=== PATIENT | female | born 1955 | race Caucasian/White ===

== ENCOUNTER 2017-07-01 14:52 | Inpatient (IN) | payer OTHER, MEDICARE ==
[~2017-07-01] VITALS: Ht 157.5 cm; Wt 60.0 kg
[~2017-07-01 14:52] MED LIST: AMOX875T20 PO; CIPR500T4 PO; ESTR1TAB PO; LEVO.1 PO; TRAM50TA PO; XANA1TAB6 PO
[2017-07-01 15:10] VITALS: BP 156/76; PULSE 84; RESP 18; TEMP 97.3; O2SAT 99
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
[2017-07-01] MEDS ORDERED: ONDANSETRON HCL 4 MG/2 ML VIAL ONE (15:42)
[2017-07-01] MEDS ORDERED: MORPHINE SULFATE 4 MG/ML INJ IV PUSH ONE (15:45)
[2017-07-01] MEDS ORDERED: ATEN25TA PO (16:31)
[2017-07-01] MEDS ORDERED: CHOL5000 PO (16:31)
[2017-07-01] MEDS ORDERED: CYCL10TA PO (16:31)
[2017-07-01] MEDS ORDERED: LEVO.075 PO (16:31)
[2017-07-01] MEDS ORDERED: BIOTCAP PO (16:31)
[2017-07-01] MEDS ORDERED: ALPR1TAB3 PO (16:31)
[2017-07-01] MEDS ORDERED: ESTR1TAB PO (16:31)
[2017-07-01] MEDS ORDERED: TRAM50TA PO (16:31)
[2017-07-01] MEDS ORDERED: IOHEXOL 350 MG/ML 10 ML VIAL (for RAD DIAG) IVCONTRAST ONE (16:38)
[2017-07-01] MEDS ORDERED: ONDANSETRON HCL 4 MG/2 ML VIAL IV PUSH ONE (17:00)
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
[2017-07-01 17:52] VITALS: BP 152/80; PULSE 79; RESP 18; O2SAT 97
[2017-07-01] MEDS ORDERED: ENALAPRILAT 1.25 MG/ML VIAL IV PUSH PRN (18:15)
[2017-07-01] MEDS ORDERED: SODIUM CHLORIDE 0.9% FLUSH 10 ML FLUSH IV FLUSH PRN (18:15)
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
[2017-07-01 19:03] VITALS: BP 165/86; PULSE 76; RESP 18; O2SAT 97
[2017-07-01] MEDS: MORPHINE SULFATE 2 MG/ML SYRINGE IV PRN (19:03)
[2017-07-01 20:00] VITALS: BP 162/82; PULSE 81; RESP 16; TEMP 98.1; O2SAT 93
[2017-07-01] MEDS: DOCUSATE SODIUM 100 MG CAP PO SCH (20:58)
[2017-07-01] MEDS: PANTOPRAZOLE SODIUM 40 MG VIAL IVP SCH (20:58)
[2017-07-01] MEDS: SODIUM CHLOR 0.9% 1000 ML INJ 1,000 ML IV SCH (21:03)
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
[2017-07-02] VITALS: BP 153/72; PULSE 85; RESP 18; TEMP 97.9; O2SAT 95
[2017-07-02 03:18] VITALS: BP 124/68; PULSE 83; RESP 18; TEMP 98.1; O2SAT 95
[2017-07-02] MEDS: MORPHINE SULFATE 2 MG/ML SYRINGE IV PRN ×3 (03:29→18:03)
[2017-07-02] MEDS: SODIUM CHLOR 0.9% 1000 ML INJ 1,000 ML IV SCH ×2 (03:58→16:24)
[2017-07-02] MEDS: LEVOTHYROXINE SODIUM 75 MCG TAB PO SCH (05:10)
[2017-07-02] MEDS: BACITRACIN TOP OINT 15 GM TUBE TOPICAL PRN ×3 (05:15→23:11)
[2017-07-02] MEDS ORDERED: ACETAMINOPHEN/HYDROcodone 325 MG/7.5 MG TAB PO PRN (07:15)
[2017-07-02] MEDS ORDERED: ACETAMINOPHEN/HYDROcodone 325 MG/5 MG TAB PO PRN (07:15)
[2017-07-02 07:23] LABS: AUTOMATED NEUTROPHIL # 4.2 TH/MM3 (1.8-7.7); BASOPHIL % 0.7 % (0.0-2.0); EOSINOPHIL % 0.7 % (0.0-4.0); HEMATOCRIT 35.6 % (35.0-46.0); LYMPH % 29.7 % (9.0-44.0); LYMPHOCYTE # 2.1 TH/MM3 (1.0-4.8); MEAN CELL VOLUME 86.3 FL (80.0-100.0); MEAN CORPUSCULAR HEMOGLOBIN 29.1 PG (27.0-34.0); MEAN CORPUSCULAR HGB CONC 33.8 % (32.0-36.0); MEAN PLATELET VOLUME 7.8 FL (7.0-11.0); MONO % 8.8 % (0.0-8.0); MONOCYTE # 0.6 TH/MM3 (0-0.9); NEUT % 60.1 % (16.0-70.0); PLATELET COUNT 232 TH/MM3 (150-450); RED BLOOD COUNT 4.13 MIL/MM3 (4.00-5.30); RED CELL DISTRIBUTION WIDTH 14.2 % (11.6-17.2)
[2017-07-02 07:46] VITALS: BP 124/68; PULSE 83; RESP 18; TEMP 98; O2SAT 95
[2017-07-02 07:49] LABS: ALBUMIN 3.2 GM/DL (3.4-5.0); ALT (GPT) 26 U/L (10-53); AST (GOT) 31 U/L (15-37); BICARBONATE 28.1 MEQ/L (21.0-32.0); BLOOD UREA NITROGEN 10 MG/DL (7-18); CALCIUM 8.6 MG/DL (8.5-10.1); CHLORIDE 105 MEQ/L (98-107); CREATININE 0.67 MG/DL (0.50-1.00); GLOMERULAR FILTRATION RATE 89 ML/MIN (>89); GLUCOSE,RANDOM 98 MG/DL (74-106); SODIUM (NA) 141 MEQ/L (136-145)
[2017-07-02] MEDS ORDERED: MAGN30S PO (07:50)
[2017-07-02] MEDS ORDERED: DOCU1CAP39 PO (07:50)
[2017-07-02 07:51] LABS: ALKALINE PHOSPHATASE 114 U/L (45-117); TOTAL BILIRUBIN ADULT 0.5 MG/DL (0.2-1.0); TOTAL PROTEIN 6.5 GM/DL (6.4-8.2)
[2017-07-02] MEDS: DOCUSATE SODIUM 100 MG CAP PO SCH ×2 (08:28→19:35)
[2017-07-02] MEDS: ATENOLOL 25 MG TAB PO SCH (08:29)
[2017-07-02] MEDS: MAGNESIUM HYDROXIDE SUSP 30 ML CUP PO PRN (08:30)
[2017-07-02] MEDS: CYCLOBENZAPRINE HCL 10 MG TAB PO SCH ×3 (08:30→16:24)
[2017-07-02] MEDS: ONDANSETRON HCL 4 MG/2 ML VIAL IV PUSH PRN ×3 (08:34→18:04)
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
[2017-07-02] MEDS: ALPRAZolam 1 MG TAB PO PRN ×2 (12:48→22:21)
[2017-07-02] MEDS: traMADol HCL 50 MG TAB PO PRN ×2 (12:48→22:17)
[2017-07-02 13:04] VITALS: BP 169/69; PULSE 68; RESP 17; TEMP 98.2; O2SAT 97
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
[2017-07-02] MEDS: PANTOPRAZOLE SODIUM 40 MG VIAL IVP SCH (19:36)
[2017-07-02 20:00] VITALS: BP 135/73; PULSE 83; RESP 18; TEMP 97.9; O2SAT 97
[2017-07-03] VITALS: BP 152/72; PULSE 78; RESP 18; TEMP 98.2; O2SAT 96
[2017-07-03] MEDS: SODIUM CHLOR 0.9% 1000 ML INJ 1,000 ML IV SCH ×3 (01:00→21:00)
[2017-07-03 04:00] VITALS: BP 134/60; PULSE 79; RESP 18; TEMP 97.9; O2SAT 95
[2017-07-03] MEDS: LEVOTHYROXINE SODIUM 75 MCG TAB PO SCH (06:41)
[2017-07-03 08:00] VITALS: BP 170/86; PULSE 86; RESP 18; TEMP 97.3; O2SAT 96
[2017-07-03] MEDS: traMADol HCL 50 MG TAB PO PRN ×2 (08:34→16:33)
[2017-07-03] MEDS: CYCLOBENZAPRINE HCL 10 MG TAB PO SCH ×3 (08:34→16:33)
[2017-07-03] MEDS: ESTRADIOL 1 MG TAB PO SCH (08:34)
[2017-07-03] MEDS: ALPRAZolam 1 MG TAB PO PRN ×2 (08:34→16:33)
[2017-07-03] MEDS: MAGNESIUM HYDROXIDE SUSP 30 ML CUP PO PRN (08:35)
[2017-07-03] MEDS: DOCUSATE SODIUM 100 MG CAP PO SCH ×2 (08:35→22:19)
[2017-07-03] MEDS: ATENOLOL 25 MG TAB PO SCH (08:36)
[2017-07-03] MEDS: BACITRACIN TOP OINT 15 GM TUBE TOPICAL PRN (08:44)
[2017-07-03] MEDS: MAGNESIUM HYDROXIDE SUSP 30 ML CUP PO SCH ×3 (08:51→22:19)
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
[2017-07-03 11:34] VITALS: BP 152/79; PULSE 80; RESP 17; TEMP 97.6; O2SAT 94
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
[2017-07-03] MEDS: ENOXAPARIN SODIUM 40 MG/0.4 ML SYRINGE SQ SCH (13:29)
[2017-07-03] MEDS: ONDANSETRON HCL 4 MG/2 ML VIAL IV PUSH PRN (14:32)
[2017-07-03] MEDS: MORPHINE SULFATE 2 MG/ML SYRINGE IV PRN (14:33)
[2017-07-03 16:34] VITALS: BP 156/82; PULSE 74; RESP 14; TEMP 98; O2SAT 97
[2017-07-03 20:00] VITALS: BP 116/62; PULSE 76; RESP 18; TEMP 98.1; O2SAT 95
[2017-07-04] VITALS: BP 113/60; PULSE 75; RESP 18; TEMP 97.8; O2SAT 96
[2017-07-04] MEDS: LEVOTHYROXINE SODIUM 75 MCG TAB PO SCH (05:56)
[2017-07-04] MEDS: ALPRAZolam 1 MG TAB PO PRN ×2 (05:56→15:53)
[2017-07-04] MEDS: traMADol HCL 50 MG TAB PO PRN ×2 (05:57→15:53)
[2017-07-04] MEDS: SODIUM CHLOR 0.9% 1000 ML INJ 1,000 ML IV SCH ×2 (07:00→17:00)
[2017-07-04 07:37] VITALS: BP 128/70; PULSE 76; RESP 18; TEMP 97.8; O2SAT 95
[2017-07-04] MEDS: MAGNESIUM HYDROXIDE SUSP 30 ML CUP PO SCH ×2 (08:38→20:04)
[2017-07-04] MEDS: CYCLOBENZAPRINE HCL 10 MG TAB PO SCH ×3 (08:39→18:11)
[2017-07-04] MEDS: PANTOPRAZOLE SOD 40 MG DELAYED RELEASE TAB PO SCH (08:39)
[2017-07-04] MEDS: ESTRADIOL 1 MG TAB PO SCH (08:39)
[2017-07-04] MEDS: DOCUSATE SODIUM 100 MG CAP PO SCH ×2 (08:39→20:03)
[2017-07-04] MEDS: ATENOLOL 25 MG TAB PO SCH (08:39)
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
[2017-07-04 11:57] VITALS: BP 172/77; PULSE 77; RESP 18; TEMP 97.6; O2SAT 94
[2017-07-04] MEDS: ENOXAPARIN SODIUM 40 MG/0.4 ML SYRINGE SQ SCH (12:24)
[2017-07-04] MEDS ORDERED: TRAM50TA PO (12:58)
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
[2017-07-04 15:51] VITALS: BP 122/77; PULSE 82; RESP 18; TEMP 98.2; O2SAT 95
[2017-07-04 20:22] VITALS: BP 137/87; PULSE 82; RESP 19; TEMP 97.8; O2SAT 93
[2017-07-05 00:07] VITALS: BP 116/52; PULSE 72; RESP 18; TEMP 97.2; O2SAT 96
[2017-07-05] MEDS: SODIUM CHLOR 0.9% 1000 ML INJ 1,000 ML IV SCH ×2 (01:35→12:39)
[2017-07-05] MEDS: LEVOTHYROXINE SODIUM 75 MCG TAB PO SCH (05:20)
[2017-07-05] MEDS ORDERED: ALPR1TAB3 PO (06:58)
[2017-07-05 08:00] VITALS: BP 148/71; PULSE 76; RESP 18; TEMP 98.1; O2SAT 97
[2017-07-05] MEDS: DOCUSATE SODIUM 100 MG CAP PO SCH (08:14)
[2017-07-05] MEDS: CYCLOBENZAPRINE HCL 10 MG TAB PO SCH ×2 (08:14→13:04)
[2017-07-05] MEDS: ESTRADIOL 1 MG TAB PO SCH (08:14)
[2017-07-05] MEDS: PANTOPRAZOLE SOD 40 MG DELAYED RELEASE TAB PO SCH (08:14)
[2017-07-05] MEDS: traMADol HCL 50 MG TAB PO PRN ×2 (08:15→13:07)
[2017-07-05] MEDS: ATENOLOL 25 MG TAB PO SCH (08:15)
[2017-07-05] MEDS: MAGNESIUM HYDROXIDE SUSP 30 ML CUP PO SCH (08:15)
[2017-07-05] MEDS: ALPRAZolam 1 MG TAB PO PRN (08:20)
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
[2017-07-05 12:00] VITALS: BP 149/72; PULSE 74; RESP 17; TEMP 98; O2SAT 100
[2017-07-05] MEDS: ENOXAPARIN SODIUM 40 MG/0.4 ML SYRINGE SQ SCH (13:05)
[2017-07-05 14:38] VITALS: RESP 18
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
== END 2017-07-05 16:43 | DRG 552 ==
LOC: NEPE 14:52 → NEDA 15:35 → N06B 20:53
PROVIDERS: ADMIT Surgery; ATTEND Surgery
DX: S12.191A Other nondisplaced fracture of second cervical vertebra, initial encounter for closed fracture (principal); V49.40XA Driver injured in collision with unspecified motor vehicles in traffic accident, initial encounter; Y92.410 Unspecified street and highway as the place of occurrence of the external cause; I10 Essential (primary) hypertension; E03.9 Hypothyroidism, unspecified; F41.9 Anxiety disorder, unspecified; Z88.5 Allergy status to narcotic agent; Z96.659 Presence of unspecified artificial knee joint
CPT/HCPCS: 70498; 72040; 72126; 72141; 74177; 80053; 85025; 99283; C9113; J1650; J2270; J2405; J7030; L0150; L0172; Q9967